=== PATIENT | male | born 1955 | race African-American/Black ===

== ENCOUNTER 2024-03-25 08:18 | Emergency (ER) | payer MEDICARE, MEDICAID, OTHER ==
[~2024-03-25] VITALS: Ht 167.6 cm; Wt 66.0 kg
[~2024-03-25 08:18] MED LIST: ALBU05 IH; ATEN50TA PO; CAPT50TA3 PO; CARI350T28 PO; CHOL100046 PO; CLON0.2T PO; CLON1TAB12 PO; HYDR-519 PO; PROM50TA2 PO; VITA100T3 PO
[2024-03-25 08:29] VITALS: BP 171/94; PULSE 66; RESP 18; TEMP 98; O2SAT 100
[2024-03-25] MEDS ORDERED: DICL100G58 TP (09:33)
== END 2024-03-25 10:23 | disposition home or self-care (01) ==
LOC: ER 08:34
DX: S63.501A Unspecified sprain of right wrist, initial encounter (principal); I10 Essential (primary) hypertension; Z88.6 Allergy status to analgesic agent; Z79.899 Other long term (current) drug therapy; Z98.890 Other specified postprocedural states; W18.30XA Fall on same level, unspecified, initial encounter; Y93.9 Activity, unspecified; Y92.89 Other specified places as the place of occurrence of the external cause; Y99.8 Other external cause status
CPT/HCPCS: 73110; 99283